=== PATIENT | female | born 1995 | race Hispanic/Latino ===

== ENCOUNTER 2020-07-11 23:08 | Day surgery (SDC) | payer BC ==
[2020-07-11 23:34] VITALS: BMI 44.2
[2020-07-12] MEDS ORDERED: hydrALAZINE 20 MG/ML VIAL SLOW IVP PRN ×2 (00:22→08:04)
--- NOTE | 2020-07-12 08:33 | HP ---
PRIMARY OB: Oni Hull MD CHIEF COMPLAINT: Intermittent cramping. HISTORY OF PRESENT ILLNESS: The patient is a 24-year-old G1, P0 female with an intrauterine at 35 weeks and 5 days, presenting to Labor and Delivery with intermittent cramping. The patient reports that her contractions will come in waves and then dissipate and she denies any contractions currently at time of our evaluation. She denies fever, cough, headache, chest pain, or shortness of breath. She does report nausea that she has had with the . Denies vomiting. Denies chest pain or shortness of breath. She does report constipation. Denies diarrhea. Denies any new rashes, hip problems, knee problems, or muscle weakness. Denies vaginal bleeding, leakage of fluid. PAST MEDICAL HISTORY: Migraines and asthma. PAST SURGICAL HISTORY: Cholecystectomy. ALLERGIES: BACTRIM. OB LABS: Blood type is A positive. Hepatitis B surface antigen is negative. She is rubella immune. RPR is negative. REVIEW OF SYSTEMS: Per HPI. PHYSICAL EXAMINATION: VITAL SIGNS: Blood pressure was 116/72, heart rate of 81, respiratory rate of 18, saturating 98% on room air, and temperature 97.8. GENERAL: She appears to be in no acute distress. She is alert, oriented, cooperative, and pleasant to interact with. HEAD: Normocephalic and atraumatic. LUNGS: Clear to auscultation bilaterally. HEART: Has a regular rate and rhythm. ABDOMEN: Gravid, soft, nontender. EXTREMITIES: Nontender and nonedematous. Cervix, per nursing staff is closed, thick, and high. heart tracing shows the fetus with a baseline in the 140s with moderate long-term variability, positive 15 x 15 accelerations, no decelerations. Tocometer, difficult to appreciate contractions. ASSESSMENT AND PLAN: The patient is a 24-year-old G1, P0 female with an intrauterine at 35 weeks and 5 days, presenting with intermittent uterine contractions. She has no evidence of labor at this time. We have given her labor precautions and fetus has a category 1 tracing reactive NST. She is to follow up with her primary OB as scheduled. Job ID: [id number]
[2020-07-12] MEDS ORDERED: FLU VACC QS2020-21(6MOS UP)/PF 60 MCG/0.5 ML SYRINGE IM ONE (09:00)
== END 2020-07-12 00:24 | disposition home health service (06) ==
LOC: L&D/OP 23:08
PROVIDERS: ATTEND Obstetrics & Gynecology
DX: O47.03 False labor before 37 completed weeks of gestation, third trimester (principal); Z3A.35 35 weeks gestation of pregnancy; Z88.2 Allergy status to sulfonamides
CPT/HCPCS: 99282

== ENCOUNTER 2020-07-20 16:46 | Inpatient (IN) | payer OTHER ==
--- NOTE | 2020-07-20 17:40 | PDOC.LDHP ---
Labor and Delivery H&P HPI: 24 y/o presents from clinic to L&D at 36 weeks and 6 days with high risk . Patient reporting significantly decreased movement x 48 hours. Maternal BMI is 44. UDS is positive for THC. BP today in clinic is 141/90, with elevation after 20 weeks. Proteinurea seems to wax and wane, but is 3+ today. T his is suggestive of preeclamsia. Furthermore, this fetus appears to have severe, significant IUGR - with no measurable growth in over 2 weeks. Amniotic fluid >2 cm is found, but subjectively LORRAINE appears low (oligohydramnios). NST in clinic is reactive, with a subtle 4 minute prolonged deceleration. BPP was 6/8 (-2 for breathing). Fetus also has a notably full bladder today, but the significance is unknown. Pelvic exam is unfavorable today, and pelvic bone structure is unusually narrow. As such, I counseled the patient that although a trial of labor is possible and allowed per ACOG guidl cynthia, with a narrow, contracted pelvis, high BMI, and an IUGR fetus - there is a higher probability of distress, and or failure of induction, with eventual . The patient was more interested in a quick, predictable delivery, even after discussing specific risks of higher BMI at . Betamethazone administration was considered, but I do not believe it should delay delivery in this case. Current gestational age (weeks): 36 Grav: 1 Para: 0 Abnormal US findings: Yes Current medications: pre-damon vitamins Allergies/Adverse Reactions: Allergies Allergy/AdvReac Type Severity Reaction Status Date / Time sulfamethoxazole Allergy Hives Verified 07/11/20 23:26 [From Bactrim] trimethoprim [From Bactrim] Allergy Hives Verified 07/11/20 23:26 - Physical Exam Vital signs reviewed and normal: yes General: NAD Heart: RRR Lungs: CTAB Abdomen: gravid Extremeties: no edema FHT: category 1 - Vaginal Exam cm dilated: 0 Effacement: 25% Station: -3
[2020-07-20] MEDS ORDERED: Promethazine HCl 25 MG/ML VIAL IM PRN (17:41)
[2020-07-20] MEDS ORDERED: Ondansetron PF 4 MG/2 ML Vial IVP PRN (17:41)
[2020-07-20] MEDS ORDERED: hydrALAZINE 20 MG/ML VIAL SLOW IVP PRN (17:41)
[2020-07-20] MEDS ORDERED: CEFAZOLIN 2 GM in Premix Bag 1 BAG IVPB ONE (17:45)
[2020-07-20] MEDS ORDERED: Bicitra 30 ML UDCUP PO SCH (17:45)
[2020-07-20 18:10] LABS: Mean Corpuscular HGB CONC 33.2 g/dL (32.0-36.0); Mean Corpuscular Hemoglobin 30.7 pg (27.0-31.0); Mean Corpuscular Volume 92.4 fL (78.0-98.0); Mean Platelet Volume 8.5 fL (7.4-10.4); Platelet Count 330 thou/uL (130-400); RBC Distribution Width 12.5 % (11.5-14.5); Red Blood Cell (RBC) Count 4.88 mill/uL (4.20-5.40); White Blood Cell (WBC) Count 7.8 thou/uL (4.8-10.8)
[2020-07-20 18:12] VITALS: BMI 44.1
[2020-07-20] MEDS ORDERED: Betamet Acet/Betamet Na Ph 30 MG/5 ML VIAL IM SCH (18:15)
[2020-07-20 18:50] LABS: Syphilis Antibody Nonreactive (Nonreactive); Syphilis Antibody Index 0.06 S/CO (<1.00 Non-Reactive)
[2020-07-20 18:51] LABS: HBSAg Index 0.15 S/CO (0-0.99); Hep B Surf Ag Non-Reactive S/CO (NonReactive)
[2020-07-20 19:09] LABS: ALT (SGPT) 48 U/L (8-55); AST (SGOT) 28 U/L (5-34); Albumin 3.5 g/dL (3.5-5.0); Alkaline Phosphatase 276 U/L (40-110); Anion Gap 14 mmol/L (10-20); BUN (Urea Nitrogen) 14 mg/dL (7.0-18.7); Bilirubin, Total 0.4 mg/dL (0.2-1.2); Calc. Creatinine Clearance 170 mL/min (70-130); Calcium 8.5 mg/dL (7.8-10.44); Carbon Dioxide 20 mmol/L (22-29); Chloride 105 mmol/L (98-107); Estimated GFR-MDRD 76; Globulin 2.7 g/dL (2.4-3.5); Glucose 79 mg/dL (70-105); Potassium 4.5 mmol/L (3.5-5.1); Protein, Total 6.2 g/dL (6.0-8.3); Sodium 134 mmol/L (136-145)
[2020-07-21] MEDS: Lactated Ringer's 1,000 ML IV SCH ×3 (03:30→12:02)
[2020-07-21] MEDS ORDERED: FLU VACC QS2020-21(6MOS UP)/PF 60 MCG/0.5 ML SYRINGE IM ONE (09:00)
[2020-07-21] MEDS ORDERED: Scopolamine 1.5 mg/72 hour Patch ONE (11:31)
[2020-07-21] MEDS ORDERED: Famotidine/PF 20 mg/2ml Vial ONE (11:32)
[2020-07-21] MEDS ORDERED: Metoclopramide HCl 10 MG/2 ML VIAL ONE (11:32)
[2020-07-21] MEDS ORDERED: Ondansetron PF 4 MG/2 ML Vial ONE (11:32)
[2020-07-21] MEDS ORDERED: Morphine PF 10 MG/10 ML VIAL ONE (11:52)
[2020-07-21] MEDS ORDERED: Oxytocin 10 UNITS/ML VIAL ONE (11:52)
[2020-07-21 12:50] LABS: SARS-CoV-2 MS2 Positive; SARS-CoV-2 N Gene Negative; SARS-CoV-2 S Gene Negative; SARS-CoV-2 by NAA Not Detected (NotDetected); SARS-CoV-2 orf1ab Negative
[2020-07-21] MEDS ORDERED: Meperidine HCl/PF 25 MG/ML VIAL SLOW IVP PRN (13:49)
[2020-07-21] MEDS ORDERED: HYDROmorphone 2 MG/ML VIAL SLOW IVP PRN (13:49)
[2020-07-21] MEDS ORDERED: Ondansetron PF 4 MG/2 ML Vial IVP PRN ×3 (13:49→21:31)
[2020-07-21] MEDS ORDERED: Naloxone HCl 0.4 mg/ml Vial IVP PRN ×4 (13:49→21:31)
[2020-07-21] MEDS ORDERED: Naloxone HCl 0.4 mg/ml Vial IV PRN ×2 (13:49→21:31)
[2020-07-21] MEDS ORDERED: Promethazine HCl 25 MG/ML VIAL IM PRN ×3 (13:49→21:31)
[2020-07-21] MEDS ORDERED: Promethazine HCl 25 MG SUPP PR PRN ×2 (13:49→21:31)
[2020-07-21] MEDS ORDERED: diphenhydrAMINE 50 MG/ML VIAL IVP PRN ×2 (13:49→21:31)
[2020-07-21] MEDS ORDERED: L&D-Morphine 4 MG/ML VIAL SLOW IVP PRN (13:49)
[2020-07-21] MEDS ORDERED: Ketorolac Tromethamine 30 MG/ML VIAL IVP PRN (13:49)
[2020-07-21] MEDS ORDERED: Ondansetron HCl/PF 4 MG/2 ML Vial IVP PRN (13:49)
[2020-07-21] MEDS ORDERED: Ketorolac Tromethamine 30 MG/ML VIAL IVP SCH (14:00)
[2020-07-21] MEDS ORDERED: Communication Order-Pharmacy FS SCH ×2 (14:00→21:45)
[2020-07-21] MEDS ORDERED: diphenhydrAMINE 50 MG/ML VIAL ONE (15:15)
[2020-07-21] MEDS ORDERED: NS / Oxytocin 40 units/1000ml 1,000 ML ONE (15:24)
[2020-07-21] MEDS ORDERED: Lanolin Ointment 7 GM TUBE TOP PRN (15:37)
[2020-07-21] MEDS ORDERED: HYDROcodone/Acetaminophen 5/325 mg Tablet PO PRN ×2 (15:37)
[2020-07-21] MEDS ORDERED: Benzocaine-Menthol 82.5 ML CAN TOP PRN (15:37)
[2020-07-21] MEDS ORDERED: diphenhydrAMINE 25 MG CAP PO PRN (15:37)
[2020-07-21] MEDS ORDERED: Zolpidem Tartrate 5 MG TAB PO PRN (15:37)
[2020-07-21] MEDS ORDERED: Bisacodyl 10 MG SUPP PR PRN (15:37)
[2020-07-21] MEDS ORDERED: hydrALAZINE 20 MG/ML VIAL SLOW IVP PRN (15:37)
[2020-07-21] MEDS ORDERED: Misoprostol 200 MCG TAB VAG PRN (15:37)
[2020-07-21] MEDS ORDERED: Milk Of Magnesia 30 ML UDCUP PO PRN (15:37)
[2020-07-21] MEDS ORDERED: Preparation H Ointment 28 GM TUBE PR PRN (15:37)
[2020-07-21] MEDS ORDERED: Methylergonovine 0.2 MG/ML VIAL IM PRN (15:37)
[2020-07-21] MEDS ORDERED: NS / Oxytocin 40 units/1000ml 1,000 ML IV SCH (15:45)
[2020-07-21] MEDS: Ferrous Sulfate 325 MG TAB PO SCH (19:19)
[2020-07-22] MEDS: Ibuprofen 800 MG TAB PO SCH ×4 (05:36→22:01)
[2020-07-22] MEDS: Docusate Calcium (SURFAK) 240 MG CAP PO SCH ×3 (08:13→22:01)
[2020-07-22] MEDS: Prenatal Vitamin 1 TAB PO SCH (08:13)
[2020-07-22] MEDS ORDERED: Measles/Mumps/Rubella 10 MCG/0.5 ML VIAL SC ONE (09:00)
[2020-07-22] MEDS ORDERED: Varicella virus, LIVE 0.5 ML VIAL SC ONE (09:00)
[2020-07-22] MEDS ORDERED: Adacel (T-DAP) 0.5 ML SYRINGE IM ONE (09:00)
[2020-07-22] MEDS ORDERED: HYDROcodone/Acetaminophen 5/325 mg Tablet PO PRN ×2 (09:45)
[2020-07-22] MEDS: Ferrous Sulfate 325 MG TAB PO SCH (13:52)
--- NOTE | 2020-07-22 17:39 | PDOC.PP ---
Post Progress Note Post Day #: 1 PO intake tolerated: yes Flatus: yes Ambulation: yes Vital Signs (12 hours) Temp Pulse Resp BP Pulse Ox 07/22/20 11:44 98.1 F 68 20 138/82 97 07/22/20 08:08 98.2 F 63 20 104/62 97 Weight Weight 249 lb 9.6 oz - Physical Examination General: NAD Cardiovascular: no m/r/g, RRR Respiratory: clear to auscultation bilaterally, non-labored breathing Abdominal: + bowel sounds, lochia, no distention Extremities: negative homans (B) Skin: CS incision dry & intact, no rash Neurological: no gross focal deficits Psychiatric: A&Ox3, normal affect Result Diagrams: 07/20/20 17:47 07/20/20 17:47 Additional Labs: Post Labs Hep Bs Antigen Non-Reactive S/CO (NonReactive) 07/20/20 17:47 Blood Type A POSITIVE 07/20/20 20:29
--- NOTE | 2020-07-22 23:59 | OP ---
DATE OF PROCEDURE: 07/21/2020 TIME OF SERVICE: At 1246 hours central daylight savings time. PREOPERATIVE DIAGNOSES: Intrauterine at 37 weeks and 0 days with a history of gestational hypertension and possible early preeclampsia with severe intrauterine growth restriction as well as small contracted pelvis and suspected cephalopelvic disproportion. POSTOPERATIVE DIAGNOSES: Intrauterine at 37 weeks and 0 days with a history of gestational hypertension and possible early preeclampsia with severe intrauterine growth restriction as well as small contracted pelvis and suspected cephalopelvic disproportion. PROCEDURE PERFORMED: Primary low transverse section. FINDINGS: Viable male infant, weighing 2019 g or 4 pounds 7 ounces, Apgars 8 and 9. QUANTITATIVE BLOOD LOSS: 215 mL. COMPLICATIONS: None. DETAILS OF THE PROCEDURE: After obtaining consent, the patient was taken back to the operating room where her regional anesthesia was found to be adequate. The patient was placed in the dorsal supine position with leftward tilt. The skin was tested for adequate anesthesia and a scalpel was then used to make a Pfannenstiel incision which was carried down to the underlying rectus fascia. The fascia was incised in the midline and the fascial incision extended in both lateral directions. 2 Bethany clamps were placed at the superior aspect of the fascia and the rectus muscles were dissected away. Similarly, 2 Bethany clamps were placed at the inferior aspect of the incision and rectus muscles dissected away. The rectus muscles were then in the midline and the peritoneum identified and entered bluntly with the hemostat. The peritoneal incision was then extended superiorly and inferiorly. A bladder blade was then placed within the peritoneal cavity and a bladder flap was made with Metzenbaum scissors and pickups with teeth. The bladder blade was replaced. A clean scalpel was used to make a uterine incision. The baby was then delivered with gentle fundal pressure without difficulty. The baby's mouth and nose were bulb suctioned and the cord clamped and cut. The baby was then handed to waiting attendants. Cord blood and cord gases were obtained. The placenta was manually extracted. The uterus exteriorized, cleared of all clots and debris, and repaired with #1 chromic suture in a running, locked fashion. Hemostasis at the uterine wall was excellent. The bladder flap was repaired with 2-0 Monocryl in a running fashion. The tubes and ovaries were inspected and appeared normal. The posterior cul-de-sac was blotted dry and the uterus was replaced within the abdomen. Again, the uterus was firm, and hemostasis was excellent at the uterine repair. Peritoneum was closed with 2-0 chromic suture in a running fashion. Fascia was reapproximated with 0 Vicryl, using 2 running sutures tied in the midline. The subcutaneous tissue was irrigated. Hemostasis was assured and the skin closed with 3-0 Monocryl and Dermabond adhesive. The patient was then transferred to the ambulatory bed and taken to recovery in stable condition. Job ID: [id number]
[2020-07-23] MEDS: Ibuprofen 800 MG TAB PO SCH ×2 (05:09→14:08)
[2020-07-23 05:41] LABS: #Basophils 0.1 thou/uL (0.0-0.2); #Lymphocytes 2.5 thou/uL (1.20-3.40); #Monocytes 1.1 thou/uL (0.11-0.59); #Neutrophils 7.5 thou/uL (1.40-6.50); %Basophils 0.7 % (0.0-1.0); %Eosinophils 0.4 % (0.0-10.0); %Lymphocytes 22.2 % (21.0-51.0); %Monocytes 9.9 % (0.0-10.0); %Neutrophils 66.8 % (42.0-75.0); Hemoglobin 13.1 g/dL (12.0-16.0); Mean Corpuscular HGB CONC 33.3 g/dL (32.0-36.0); Mean Corpuscular Hemoglobin 31.2 pg (27.0-31.0); Mean Corpuscular Volume 93.6 fL (78.0-98.0); Mean Platelet Volume 8.3 fL (7.4-10.4); Platelet Count 247 thou/uL (130-400); RBC Distribution Width 12.6 % (11.5-14.5); Red Blood Cell (RBC) Count 4.19 mill/uL (4.20-5.40); White Blood Cell (WBC) Count 11.2 thou/uL (4.8-10.8)
[2020-07-23] MEDS: Ferrous Sulfate 325 MG TAB PO SCH (07:29)
[2020-07-23 09:02] VITALS: BP 127/82; TEMP 98
[2020-07-23] MEDS: Docusate Calcium (SURFAK) 240 MG CAP PO SCH (09:10)
[2020-07-23] MEDS: Prenatal Vitamin 1 TAB PO SCH (09:10)
== END 2020-07-23 15:10 | disposition home or self-care (01) | DRG 788 ==
LOC: L&D 16:46 → 3SW 07-21 16:12
PROVIDERS: ADMIT Obstetrics & Gynecology; ATTEND Obstetrics & Gynecology
PROC: 10D00Z1 Extraction of Products of Conception, Low, Open Approach (ICD-10-PCS; principal; 2020-07-21)
DX: O13.4 Gestational [pregnancy-induced] hypertension without significant proteinuria, complicating childbirth (principal); O36.5930 Maternal care for other known or suspected poor fetal growth, third trimester, not applicable or unspecified; Z3A.37 37 weeks gestation of pregnancy; Z37.0 Single live birth; Z20.828 Contact with and (suspected) exposure to other viral communicable diseases; Z88.2 Allergy status to sulfonamides; Z88.8 Allergy status to other drugs, medicaments and biological substances
CPT/HCPCS: 36415; 51702; 80053; 82570; 84156; 85025; 85027; 86780; 86850; 86900; 86901; 87340; 87635; 99285; J0690; J0702; J1200; J2270; J2405; J2765; S0028; U0003